=== PATIENT | female | born 1970 | race Caucasian/White ===

== ENCOUNTER 2024-07-05 16:22 | Outpatient (CLI) | payer BC, OTHER | END 2024-07-05 16:23 | disposition home or self-care (01) | LOC: CSHRAD 16:22 | PROVIDERS: ATTEND Pharmacy Technician | DX: M47.26 Other spondylosis with radiculopathy, lumbar region (principal) | CPT/HCPCS: 72100 ==

== ENCOUNTER 2024-07-09 12:05 | Outpatient (CLI) | payer BC, OTHER | END 2024-07-09 12:06 | disposition home or self-care (01) | LOC: CSHRAD 12:05 | PROVIDERS: ATTEND Chiropractor | DX: M25.552 Pain in left hip (principal) ==